=== PATIENT | female | born 1995 | race Caucasian/White ===

== ENCOUNTER 2019-10-13 16:13 | Observation (INO) | payer MEDICAID ==
[~2019-10-13] VITALS: Ht 152.4 cm; Wt 68.5 kg
[2019-10-13 17:46] LABS: BASOPHILS % 0.3 % (0.0-2.0); CLARITY URINE CLEAR (CLEAR); COLOR URINE YELLOW (YELLOW); EOSINOPHILS % 1.5 % (0.0-5.0); HEMATOCRIT. 36.4 % (36.0-48.0); HEMOGLOBIN. 12.7 g/dL (12.0-16.0); KETONES URINE NEGATIVE (NEGATIVE); LEUKOCYTE ESTERASE URINE NEGATIVE (NEGATIVE); LYMPHOCYTES % 23.5 % (20.0-50.0); MEAN CORPUSCULAR HEMOGLOBIN 32.5 pg (28.0-32.0); MEAN CORPUSCULAR VOLUME 93.1 fL (81.0-99.0); MEAN PLATELET VOLUME 8.2 fl (7.4-10.4); MONOCYTES % 9.5 % (2.0-8.0); NEUTROPHILS % 65.2 % (40.0-76.0); NITRITE URINE NEGATIVE (NEGATIVE); OCCULT BLOOD URINE NEGATIVE (NEGATIVE); PLATELET 202 x1000/uL (130-400); PROTEIN URINE NEGATIVE (NEGATIVE); RED BLOOD CELL COUNT 3.91 mill/uL (4.2-5.4); RED CELL DISTRIBUTION WIDTH 13.2 % (11.6-14.6); SPECIFIC GRAVITY URINE 1.007 (1.005-1.030); UROBILINOGEN URINE 0.2 E.U./dL (0.2-1.0)
[2019-10-13 17:57] LABS: CHLORIDE 109 mEq/L (98-107)
[2019-10-13 18:12] LABS: D-DIMER 2.32 mg/L FEU (<0.50); INR 0.9; PARTIAL THROMBOPLASTIN TIME 26.4 sec (23.4-31.0); PROTHROMBIN TIME 9.8 sec (9.6-11.0)
[2019-10-13] MEDS ORDERED: PNV1TABL50 PO (20:44)
[2019-10-13] MEDS ORDERED: FERR-71 PO (20:45)
== END 2019-10-13 21:00 | disposition home or self-care (01) ==
LOC: 8 EST LDRP 16:13
DX: O26.893 Other specified pregnancy related conditions, third trimester (principal); R03.0 Elevated blood-pressure reading, without diagnosis of hypertension; Z3A.38 38 weeks gestation of pregnancy
CPT/HCPCS: 36415; 76805; 76817; 76818; 80053; 81003; 84550; 85025; 85379; 85384; 85610; 85730; G0378; 99281

== ENCOUNTER 2022-03-09 18:44 | Emergency (ER) | payer MEDICAID ==
[~2022-03-09] VITALS: Ht 167.6 cm; Wt 77.0 kg
[~2022-03-09 18:44] MED LIST: ALBU90AE2 INH; CHOL200059 PO; FERR-71 PO; IBUP-2030 PO; PNV1TABL50 PO
[2022-03-09] MEDS: ACETAMINOPHEN 325MG TABLET PO ONE (21:45)
[2022-03-09] MEDS ORDERED: IBUP-2029 MT (23:11)
[2022-03-09] MEDS ORDERED: TOPUD MT (23:11)
[2022-03-09 23:20] VITALS: BP 125/62
== END 2022-03-09 23:30 | disposition home or self-care (01) ==
LOC: ER 18:44
DX: S52.591A Other fractures of lower end of right radius, initial encounter for closed fracture (principal); W18.39XA Other fall on same level, initial encounter; Y93.89 Activity, other specified; Y92.89 Other specified places as the place of occurrence of the external cause; Y99.8 Other external cause status; J45.909 Unspecified asthma, uncomplicated; Z79.899 Other long term (current) drug therapy
CPT/HCPCS: 29125; 73080; 73090; 73110; 73130; 81025; 99284